=== PATIENT | male | born 1985 | race African-American/Black ===

== ENCOUNTER 2017-01-29 10:45 | Emergency (ER) | payer MEDICAID ==
[~2017-01-29] VITALS: Ht 175.3 cm; Wt 78.0 kg
[~2017-01-29 10:45] MED LIST: ALBU2.5V13 NEB
[2017-01-29] MEDS ORDERED: METHYLPREDNISOLONE SOD SUCC 40 MG/ML VIAL IV ONE (13:30)
[2017-01-29] MEDS ORDERED: IPRATROPIUM/ALBUTEROL 0.5-3(2.5)MG/3ML NEB HHN ONE (13:30)
[2017-01-29 14:45] LABS: CLARITY URINE CLEAR (CLEAR); COLOR URINE YELLOW (YELLOW); GLUCOSE URINE NEGATIVE (NEGATIVE); KETONES URINE NEGATIVE (NEGATIVE); LEUKOCYTE ESTERASE URINE TRACE (NEGATIVE); NITRITE URINE NEGATIVE (NEGATIVE); OCCULT BLOOD URINE NEGATIVE (NEGATIVE); PH URINE 7.5 (4.5-8.0); PROTEIN URINE NEGATIVE (NEGATIVE); SPECIFIC GRAVITY URINE 1.023 (1.005-1.030)
[2017-01-29 15:00] VITALS: BP 109/63
[2017-01-29 15:08] LABS: *AMPHETAMINES SCREEN URINE PRESUMTIVE POSITIVE (NEGATIVE); *BARBITURATES SCREEN URINE NEGATIVE (NEGATIVE); *BENZODIAZEPINES SCREEN URINE NEGATIVE (NEGATIVE); *COCAINE SCREEN URINE NEGATIVE (NEGATIVE); CANNABINOID URINE SCREEN PRESUMTIVE POSITIVE (NEGATIVE); METHADONE URINE SCREEN NEGATIVE (NEGATIVE); OPIATES URINE SCREEN NEGATIVE (NEGATIVE); PHENCYCLIDINE URINE SCREEN NEGATIVE (NEGATIVE)
== END 2017-01-29 16:37 | disposition home or self-care (01) ==
LOC: ER 10:45
DX: J45.901 Unspecified asthma with (acute) exacerbation (principal); F12.10 Cannabis abuse, uncomplicated; Z88.0 Allergy status to penicillin
CPT/HCPCS: 71010; 80305; 81001; 94640; 96374; 99285; J2920; Z7610; J7620

== ENCOUNTER 2017-07-01 12:57 | Emergency (ER) | payer MEDICAID ==
[~2017-07-01] VITALS: Ht 172.7 cm; Wt 65.0 kg
[2017-07-01 13:46] VITALS: BP 117/69
[2017-07-01] MEDS ORDERED: PREDNISONE 20MG TABLET PO ONE (15:45)
== END 2017-07-01 16:42 | disposition home or self-care (01) ==
LOC: ER 12:58
DX: J45.901 Unspecified asthma with (acute) exacerbation (principal); F12.10 Cannabis abuse, uncomplicated; Z88.0 Allergy status to penicillin
CPT/HCPCS: 99283; J7512; Z7610

== ENCOUNTER 2018-08-29 22:23 | Emergency (ER) | payer MEDICAID ==
[~2018-08-29] VITALS: Ht 165.1 cm; Wt 50.0 kg
[2018-08-30] MEDS ORDERED: SODIUM CHLORIDE 0.9% 1,000 ML IV ONE (00:14)
[2018-08-30] MEDS ORDERED: LEVETIRACETAM 1000MG/100ML 100 ML IV ONE (00:15)
[2018-08-30 00:24] LABS: BASOPHILS % 0.5 % (0.0-2.0); EOSINOPHILS % 1.5 % (0.0-5.0); HEMATOCRIT. 37.7 % (36.0-46.0); HEMOGLOBIN. 12.8 g/dL (11.5-15.0); LYMPHOCYTES % 33.5 % (20.0-50.0); MEAN CORPUSCULAR HEMOGLOBIN 28.7 pg (28.0-32.0); MEAN CORPUSCULAR VOLUME 84.7 fL (78.0-97.0); MEAN PLATELET VOLUME 7.4 fl (7.4-10.4); MONOCYTES % 9.8 % (2.0-8.0); NEUTROPHILS % 54.7 % (40.0-76.0); PLATELET 226 x1000/uL (130-400); RED BLOOD CELL COUNT 4.45 mill/uL (3.9-5.3); RED CELL DISTRIBUTION WIDTH 13.7 % (11.6-14.6)
[2018-08-30 00:30] LABS: CHLORIDE 106 mEq/L (98-107)
[2018-08-30 00:32] LABS: INR 1.1; PARTIAL THROMBOPLASTIN TIME 29.4 sec (23.4-31.0); PROTHROMBIN TIME 11.5 sec (9.6-11.0)
[2018-08-30 00:34] LABS: ETHANOL BLOOD < 10 mg/dL
[2018-08-30 00:39] LABS: CREATINE KINASE 472 IU/L (39-308)
[2018-08-30 00:43] LABS: CLARITY URINE CLEAR (CLEAR); COLOR URINE YELLOW (YELLOW); KETONES URINE NEGATIVE (NEGATIVE); LEUKOCYTE ESTERASE URINE NEGATIVE (NEGATIVE); NITRITE URINE NEGATIVE (NEGATIVE); OCCULT BLOOD URINE NEGATIVE (NEGATIVE); PH URINE 5.5 (4.5-8.0); PROTEIN URINE NEGATIVE (NEGATIVE); SPECIFIC GRAVITY URINE 1.018 (1.005-1.030); UROBILINOGEN URINE 0.2 E.U./dL (0.2-1.0)
[2018-08-30 00:56] LABS: *AMPHETAMINES SCREEN URINE NEGATIVE (NEGATIVE); *BARBITURATES SCREEN URINE NEGATIVE (NEGATIVE); *BENZODIAZEPINES SCREEN URINE PRESUMTIVE POSITIVE (NEGATIVE); *COCAINE SCREEN URINE NEGATIVE (NEGATIVE); METHADONE URINE SCREEN NEGATIVE (NEGATIVE); OPIATES URINE SCREEN NEGATIVE (NEGATIVE)
[2018-08-30 00:57] LABS: CANNABINOID URINE SCREEN NEGATIVE (NEGATIVE); PHENCYCLIDINE URINE SCREEN NEGATIVE (NEGATIVE)
[2018-08-30 03:46] VITALS: BP 109/1
== END 2018-08-30 03:59 | disposition designated cancer center or children's hospital (05) ==
LOC: ER 22:23
DX: G40.901 Epilepsy, unspecified, not intractable, with status epilepticus (principal); J45.909 Unspecified asthma, uncomplicated; Z88.0 Allergy status to penicillin
CPT/HCPCS: 36415; 70450; 80053; 80305; 80320; 81003; 82550; 83735; 85025; 85610; 85730; 96365; 99285; J1953; J7030; Z7610; G0480

== ENCOUNTER 2018-09-03 01:00 | Emergency (ER) | payer MEDICAID ==
[~2018-09-03] VITALS: Ht 167.6 cm; Wt 57.3 kg
[2018-09-03 01:43] LABS: BASOPHILS % 0.7 % (0.0-2.0); EOSINOPHILS % 2.4 % (0.0-5.0); HEMATOCRIT. 39.1 % (36.0-46.0); HEMOGLOBIN. 13.2 g/dL (11.5-15.0); LYMPHOCYTES % 50.8 % (20.0-50.0); MEAN CORPUSCULAR HEMOGLOBIN 28.7 pg (28.0-32.0); MEAN CORPUSCULAR VOLUME 85.1 fL (78.0-97.0); MEAN PLATELET VOLUME 7.1 fl (7.4-10.4); MONOCYTES % 8.8 % (2.0-8.0); NEUTROPHILS % 37.3 % (40.0-76.0); PLATELET 242 x1000/uL (130-400); RED BLOOD CELL COUNT 4.59 mill/uL (3.9-5.3); RED CELL DISTRIBUTION WIDTH 13.8 % (11.6-14.6)
[2018-09-03 01:55] LABS: CHLORIDE 106 mEq/L (98-107)
[2018-09-03 01:59] LABS: ETHANOL BLOOD < 10 mg/dL
[2018-09-03 02:33] LABS: *AMPHETAMINES SCREEN URINE NEGATIVE (NEGATIVE); *BARBITURATES SCREEN URINE NEGATIVE (NEGATIVE); *BENZODIAZEPINES SCREEN URINE NEGATIVE (NEGATIVE)
[2018-09-03 02:34] LABS: *COCAINE SCREEN URINE NEGATIVE (NEGATIVE); CANNABINOID URINE SCREEN NEGATIVE (NEGATIVE); METHADONE URINE SCREEN NEGATIVE (NEGATIVE); OPIATES URINE SCREEN NEGATIVE (NEGATIVE)
[2018-09-03 02:35] LABS: PHENCYCLIDINE URINE SCREEN NEGATIVE (NEGATIVE)
[2018-09-03 02:48] LABS: CLARITY URINE CLEAR (CLEAR); COLOR URINE YELLOW (YELLOW); KETONES URINE NEGATIVE (NEGATIVE); LEUKOCYTE ESTERASE URINE NEGATIVE (NEGATIVE); NITRITE URINE NEGATIVE (NEGATIVE); OCCULT BLOOD URINE NEGATIVE (NEGATIVE); PROTEIN URINE NEGATIVE (NEGATIVE); SPECIFIC GRAVITY URINE 1.014 (1.005-1.030); UROBILINOGEN URINE 0.2 E.U./dL (0.2-1.0)
[2018-09-03 03:22] VITALS: BP 89/34
== END 2018-09-03 03:37 | disposition home or self-care (01) ==
LOC: ER 01:00
DX: R56.9 Unspecified convulsions (principal); J45.909 Unspecified asthma, uncomplicated; Z88.0 Allergy status to penicillin
CPT/HCPCS: 36415; 80305; 80320; 84443; 99283; G0480

== ENCOUNTER 2021-09-07 16:08 | Emergency (ER) | payer MEDICAID ==
[~2021-09-07] VITALS: Ht 175.3 cm; Wt 85.0 kg
[2021-09-07] MEDS ORDERED: LIDOCAINE HCL/EPINEPHRINE 1%-EPI 1:100,000 20 ML VIAL INFIL ONE (17:15)
[2021-09-07] MEDS ORDERED: KETOROLAC 30MG/ML VIAL IM ONE (17:15)
[2021-09-07] MEDS ORDERED: BACITRACIN ZINC OINT UDPKT TOP ONE (17:15)
[2021-09-07 18:20] VITALS: BP 113/70
== END 2021-09-07 19:19 | disposition left against medical advice (07) ==
LOC: ER 16:08
DX: S81.811A Laceration without foreign body, right lower leg, initial encounter (principal); S80.812A Abrasion, left lower leg, initial encounter; S80.811A Abrasion, right lower leg, initial encounter; J45.909 Unspecified asthma, uncomplicated; Z88.0 Allergy status to penicillin; V43.52XA Car driver injured in collision with other type car in traffic accident, initial encounter; W22.11XA Striking against or struck by driver side automobile airbag, initial encounter; Y93.89 Activity, other specified; Y92.488 Other paved roadways as the place of occurrence of the external cause
CPT/HCPCS: 73590; 96372; 99283; J1885; J3490